=== PATIENT | female | born 1985 | race African-American/Black ===

== ENCOUNTER 2018-10-15 23:25 | Emergency (ER) | payer OTHER ==
[~2018-10-15] VITALS: Ht 160 cm; Wt 132.9 kg
[2018-10-15 23:25] VITALS: BP 171/82
[2018-10-15] MEDS ORDERED: LIDOCAINE 2% PF 5 ML VIAL. INJ ONE (23:55)
--- NOTE | 2018-10-16 00:50 | PHYS DOC ---
Past Medical History Past Medical History: No Pertinent History Past Surgical History: Appendectomy, Alcohol Use: None Drug Use: None Adult General Chief Complaint Chief Complaint: LACERATION/AVULSION HPI HPI Patient is a 32 year old female presents with a laceration to the index finger on the right hand basic last broke as she was washing dishes she said it was like jaws there is SO MUCH BLOOD SHE called 911 currently bleeding is controlled Current Medications Current Medications Current Medications Medications (Trade) Dose Ordered Sig/Sandi Start Time Stop Time Status Last Admin Dose Admin Lidocaine HCl (Lidocaine Pf 2% Vial) 5 ml 1X ONCE 10/15/18 23:55 10/15/18 23:56 DC 10/15/18 23:53 5 ML Allergies Allergies Allergies Coded Allergies Type Severity Reaction Last Updated Verified No Known Drug Allergies 10/15/18 No Physical Exam Physical Exam Constitutional: Well developed, well nourished, no acute distress, non-toxic appearance. [] HENT: Normocephalic, atraumatic, bilateral external ears normal, oropharynx moist, no oral exudates, nose normal. [] Eyes: PERRLA, EOMI, conjunctiva normal, no discharge. [] Neck: Normal range of motion, no tenderness, supple, no stridor. [] Pulmonary: Normal respiratory effort no increased work of breathing no obvious chest wall trauma Skin: There is a 3 cm laceration V-shaped overlying the MCP joint dorsally on the first finger just at the base of the finger there is no extensor tendon visualizedthe wound it is just deep to subcutaneous full strength against resistance sensation is intact Extremities: No tenderness, no cyanosis, no clubbing, ROM intact, no edema. [] Neurologic: Alert and oriented X 3, normal motor function, normal sensory function, no focal deficits noted. [] Psychologic: Affect normal, judgement normal, mood normal. [] Current Patient Data Vital Signs Vital Signs Date Time Temp Pulse Resp B/P (MAP) Pulse Ox O2 Delivery O2 Flow Rate FiO2 10/15/18 23:25 98.8 98 22 171/82 (111) 100 Room Air 98.8 EKG EKG [] Radiology/Procedures Radiology/Procedures [] Course & Med Decision Making Course & Med Decision Making Pertinent Labs and Imaging studies reviewed. (See chart for details) [PROCEDURE NOTE: LACERATION REPAIR VERBAL CONSENT SUBQ LIDO 4 ML WOUND IRRIGATED NO FB SEEN NO TENDON INJURY SEEN CLOSED WITH 5-0 ETHILON SIMPLE INTERRUPTED 6 SUTURES, EXCELLENT HEMOSTASIS DRESSING APPLIED . Instructions were given patient was understanding. She says the tetanus is up-to-date [place] Disclaimer Dragon Disclaimer This electronic medical record was generated, in whole or in part, using a voice recognition dictation system. Departure Departure Impression: Primary Impression: Laceration Disposition: HOME, SELF-CARE Condition: STABLE Referrals: NO PCP (PCP) Patient Instructions: Laceration Care, Adult, [id number] Additional Instructions: SUTURE REMOVAL IN TEN DAYS. CATALINO BRAND MD October 16, 2018 00:50
== END 2018-10-16 00:48 | disposition home or self-care (01) ==
LOC: ER 23:25
DX: S61.210A Laceration without foreign body of right index finger without damage to nail, initial encounter (principal); Y28.8XXA Contact with other sharp object, undetermined intent, initial encounter; Y93.G1 Activity, food preparation and clean up; Y92.89 Other specified places as the place of occurrence of the external cause; Y99.8 Other external cause status
CPT/HCPCS: 12002; 99283; J2001

== ENCOUNTER 2020-10-14 12:00 | Emergency (ER) | payer OTHER ==
[~2020-10-14] VITALS: Ht 161.3 cm; Wt 141.3 kg
[2020-10-14 12:00] VITALS: BP 129/81
[2020-10-14 12:28] LABS: BASO % 0 % (0-3); EOS # 0.1 x10^3/uL (0.0-0.7); EOS % 1 % (0-3); HEMATOCRIT 37.7 % (36.0-47.0); HEMOGLOBIN 12.6 g/dL (12.0-15.5); LYMPH # 2.8 x10^3/uL (1.0-4.8); LYMPH % 32 % (24-48); MEAN CORPUSCULAR HEMOGLOBIN 31 pg (25-35); MEAN CORPUSCULAR HGB CONC 33 g/dL (31-37); MEAN CORPUSCULAR VOLUME 94 fL (79-100); MONO # 0.5 x10^3/uL (0.0-1.1); MONO % 6 % (0-9); NEUT # 5.4 x10^3/uL (1.8-7.7); NEUT % 62 % (31-73); PLATELET COUNT 297 x10^3/uL (140-400); RED CELL DISTRIBUTION WIDTH 13.3 % (11.5-14.5); WHITE BLOOD COUNT 8.7 x10^3/uL (4.0-11.0)
[2020-10-14 12:47] LABS: CREATININE 0.8 mg/dL (0.6-1.0); POTASSIUM 4.9 mmol/L (3.5-5.1)
[2020-10-14 12:53] LABS: ALBUMIN 3.9 g/dL (3.4-5.0); ALBUMIN/GLOBULIN RATIO 1.1 (1.0-1.7); TOTAL BILIRUBIN 0.9 mg/dL (0.2-1.0); TOTAL PROTEIN 7.6 g/dL (6.4-8.2)
[2020-10-14 13:32] LABS: BILIRUBIN,URINE NEGATIVE (NEG); CLARITY,URINE CLEAR; COLOR,URINE YELLOW; NITRITE,URINE NEGATIVE (NEG); PROTEIN,URINE NEGATIVE (NEG-TRACE); UROBILINOGEN,URINE 0.2 mg/dL (0.2 mg/dL)
[2020-10-14 13:45] LABS: AMORPHOUS SEDIMENT,UR PRESENT /HPF; RBC,URINE RARE /HPF (0-2)
[2020-10-14] MEDS ORDERED: CONTRAST GIVEN. MC PRN (13:45)
[2020-10-14 13:48] LABS: BACTERIA,URINE FEW /HPF (0-FEW)
[2020-10-14] MEDS ORDERED: IOHEXOL 350 MG/ML 100 ML VIAL. IV ONE (14:00)
--- NOTE | 2020-10-14 14:06 | RAD ---
Examination: CT angiography chest with IV contrast HISTORY: History of elevated d-dimer, syncope, shortness of breath COMPARISON: None available TECHNIQUE: Axial CT angiographic images of chest were performed with IV contrast. Coronal and sagitta l 3-D MIP reformats are performed Exposure: One or more of the following individualized dose reduction techniques were utilized for thi s examination: 1. Automated exposure control 2. Adjustment of the mA and/or kV according to patient size 3. Use of iterative reconstruction technique FINDINGS: The visualized thyroid gland grossly appears unremarkable. The central airways are patent heart size grossly appears unremarkable . The caliber of the aorta grossly appears unremarkable. There is no ev idence of filling defect identified in the main pulmonary arterial trunk and right and left pulmonary arteries. Evaluation of distal branches of the pulmonary arteries is limited. Minimal left lung base atelectasis. The liver, spleen, adrenals grossly appears unremarkable. Mild degenerative changes thoracic spine. IMPRESSION: 1. No evidence of central pulmonary embolism. Evaluation of distal branches of the pulmonary arterie s is limited. 2. Minimal left lung base atelectasis. Electronically signed by: Bg Ocampo MD (10/14/2020 2:04 PM) [email or web address]
--- NOTE | 2020-10-14 14:25 | ED.ADGEN ---
Past Medical History Past Medical History: No Pertinent History Past Surgical History: Appendectomy, Smoking Status: Never Smoker Alcohol Use: None Drug Use: None General Adult EDM: Chief Complaint: SYNCOPE HPI: HPI: Patient is 34-year-old previously healthy female presents to the emergency room after having a presyncopal episode at home. Patient states that she was working from home and was on a call when she suddenly started feeling that the room is spinning. She states she then fell out of her chair but did not lose consciousness. She states after that she was very diaphoretic, weak, dizzy. She never had anything like this previously. She felt completely normal prior to this episode. She states she now feels mildly lightheaded but otherwise just feels tired. She denies any chest pain. She states that it does feel somewhat hard to breathe. She denies any leg swelling. She denies any nausea or vomiting. Review of Systems: Review of Systems: Complete ROS is negative unless otherwise documented in HPI Current Medications: Current Medications Medications (Trade) Dose Ordered Sig/Sandi Start Time Stop Time Status Last Admin Dose Admin Info (CONTRAST GIVEN -- Rx MONITORING) 1 each PRN DAILY PRN 10/14/20 13:45 10/16/20 13:44 Iohexol (Omnipaque 350 Mg/ml) 100 ml 1X ONCE 10/14/20 14:00 10/14/20 14:01 DC 10/14/20 13:42 100 ML Allergies: Allergies: Allergies Coded Allergies Type Severity Reaction Last Updated Verified No Known Drug Allergies 10/15/18 No Physical Exam: PE: General: Awake, alert, NAD. Well Nourished, well hydrated. Cooperative HEENT: Atraumatic, EOMI, PERRL, airway patent, moist oral mucosa Neck: Supple, trachea midline Respiratory: CTA bilaterally, normal effort, no wheezing/crackles CV: RRR, no murmur, cap refill <2, no edema in lower extremities GI: Soft, nondistended, nontender, no masses MSK: No obvious deformities Skin: Warm, dry, intact Neuro: A&O x3, speech NL, sensory and motor grossly intact, no focal deficits Psych: Normal affect, normal mood, not suicidal or homicidal Current Patient Data: Labs: Laboratory Tests Test 10/14/20 12:19 10/14/20 13:15 10/14/20 13:20 White Blood Count 8.7 x10^3/uL (4.0-11.0) Red Blood Count 4.00 x10^6/uL (3.50-5.40) Hemoglobin 12.6 g/dL (12.0-15.5) Hematocrit 37.7 % (36.0-47.0) Mean Corpuscular Volume 94 fL (79-100) Mean Corpuscular Hemoglobin 31 pg (25-35) Mean Corpuscular Hemoglobin Concent 33 g/dL (31-37) Red Cell Distribution Width 13.3 % (11.5-14.5) Platelet Count 297 x10^3/uL (140-400) Neutrophils (%) (Auto) 62 % (31-73) Lymphocytes (%) (Auto) 32 % (24-48) Monocytes (%) (Auto) 6 % (0-9) Eosinophils (%) (Auto) 1 % (0-3) Basophils (%) (Auto) 0 % (0-3) Neutrophils # (Auto) 5.4 x10^3/uL (1.8-7.7) Lymphocytes # (Auto) 2.8 x10^3/uL (1.0-4.8) Monocytes # (Auto) 0.5 x10^3/uL (0.0-1.1) Eosinophils # (Auto) 0.1 x10^3/uL (0.0-0.7) Basophils # (Auto) 0.0 x10^3/uL (0.0-0.2) D-Dimer ([place]) 0.57 ug/mlFEU (0.00-0.50) H Sodium Level 140 mmol/L (136-145) Potassium Level 4.9 mmol/L (3.5-5.1) Chloride Level 105 mmol/L (98-107) Carbon Dioxide Level 24 mmol/L (21-32) Anion Gap 11 (6-14) Blood Urea Nitrogen 14 mg/dL (7-20) Creatinine 0.8 mg/dL (0.6-1.0) Estimated GFR (Cockcroft-Gault) 100.0 BUN/Creatinine Ratio 18 (6-20) Glucose Level 93 mg/dL (70-99) Calcium Level 9.0 mg/dL (8.5-10.1) Total Bilirubin 0.9 mg/dL (0.2-1.0) Aspartate Amino Transferase (AST) 18 U/L (15-37) Alanine Aminotransferase (ALT) 22 U/L (14-59) Alkaline Phosphatase 69 U/L (46-116) Total Protein 7.6 g/dL (6.4-8.2) Albumin 3.9 g/dL (3.4-5.0) Albumin/Globulin Ratio 1.1 (1.0-1.7) Urine Collection Type Unknown Urine Color Yellow Urine Clarity Clear Urine pH 8.0 (<5.0-8.0) Urine Specific [place] 1.015 (1.000-1.030) Urine Protein Negative mg/dL (NEG-TRACE) Urine Glucose (UA) Negative mg/dL (NEG) Urine Ketones (Stick) Negative mg/dL (NEG) Urine Blood Negative (NEG) Urine Nitrite Negative (NEG) Urine Bilirubin Negative (NEG) Urine Urobilinogen Dipstick 0.2 mg/dL (0.2 mg/dL) Urine Leukocyte Esterase Negative (NEG) Urine RBC Rare /HPF (0-2) Urine WBC 1-4 /HPF (0-4) Urine Squamous Epithelial Cells Mod /LPF Urine Amorphous Sediment Present /HPF Urine Bacteria Few /HPF (0-FEW) Urine Mucus Slight /LPF POC Urine HCG, Qualitative Hcg negative (Negative) Laboratory Tests 10/14/20 12:19 Laboratory Tests 10/14/20 12:19 Vital Signs: Vital Signs Date Time Temp Pulse Resp B/P (MAP) Pulse Ox O2 Delivery O2 Flow Rate FiO2 10/14/20 12:00 99.0 66 28 129/81 (97) 100 Room Air 99.0 EKG: EKG: [] Heart Score: C/O Chest Pain: N/A Risk Factors: Risk Factors: DM, Current or recent (<one month) smoker, HTN, HLP, family history of CAD, obesity. Risk Scores: Score 0 - 3: 2.5% MACE over next 6 weeks - Discharge Home Score 4 - 6: 20.3% MACE over next 6 weeks - Admit for Clinical Observation Score 7 - 10: 72.7% MACE over next 6 weeks - Early Invasive Strategies Radiology/Procedures: Radiology/Procedures: [] Course & Med Decision Making: Course & Med Decision Making Pertinent Labs and Imaging studies reviewed. (See chart for details) Patient is a 34-year-old female presents to the emergency room after having a presyncopal episode. EKG does not show any signs of arrhythmia or STEMI at this time. test is negative. Glucose is normal. Given patient's recent trip to [place] will evaluate her for possible pulmonary embolism. Heart rate is normal. Patient is not requiring any oxygen at this time. She does not have any chest pain. D-dimer was elevated. CT angio was done which does not show signs of pulmonary embolism. Lab work is otherwise unremarkable. Patient's test results and vitals while in the ED were fully reviewed and discussed with the patient. Patient is stable and at this time does not need admission to the hospital. We have discussed strict return precautions and the importance of following up with their Primary Care Physician. Patient stated understanding and was given an opportunity to ask any questions. Patient is in agreement with plan. Heri Disclaimer: Heri Disclaimer: This electronic medical record was generated, in whole or in part, using a voice recognition dictation system. Departure Departure Impression: Primary Impression: Syncope Disposition: 01 HOME / SELF CARE / HOMELESS Condition: STABLE Referrals: NO PCP (PCP) Patient Instructions: Syncope RICARDO FORD MD October 14, 2020 14:25
--- NOTE | 2020-10-14 15:39 | EKG ---
[facility] [address] [place] [id number] Test Date: 2020-10-14 Test Time: 12:11:16 Pat Name: ALAYNA RODRIGUES Department: Room: Gender: F Ledge Man: : 1985 Requested By: RICARDO FORD Order Number: [id number] Reading MD: Measurements Intervals Dyke Rate: 64 P: -27 AR: 174 QRS: 21 QRSD: 82 T: 18 QT: 398 QTc: 410 Interpretive Statements SINUS RHYTHM OTHERWISE NORMAL ECG RI6.02 No previous ECG available for comparison
== END 2020-10-14 15:45 | disposition home or self-care (01) ==
LOC: ER 12:00
DX: R55 Syncope and collapse (principal)
CPT/HCPCS: 36415; 71275; 80053; 81001; 81025; 85025; 85379; 93005; 99285; Q9967